=== PATIENT | male | born 2000 | race Caucasian/White ===

== ENCOUNTER 2021-04-23 16:41 | Emergency (ER) | payer BC, SELFPAY ==
[2021-04-23 16:42] VITALS: BP 136/88; PULSE 55; RESP 18; TEMP 36.8; O2SAT 100
--- NOTE | 2021-04-23 17:36 | ED.GENADULT ---
HPI - General Adult General Chief complaint: Eye Problems Stated complaint: bleach in eye Time Seen by Provider: 04/23/21 16:49 Source: patient and RN notes reviewed Mode of arrival: ambulatory Limitations: no limitations History of Present Illness HPI narrative: Patient is a 20-year-old male who presents to emergency department for evaluation of injury to the right notes that he got bleach in the right eye while cleaning irrigated his eye presents to emergency department for evaluation patient notes some irritation and blurriness to the right eye with mild discomfort notes his immunizations are up-to-date. Patient denies any other complaints or concerns presents in no distress does not appear uncomfortable Related Data Home Medications Medication Instructions Recorded Confirmed No Home Medications 04/23/21 04/23/21 Allergies Allergy/AdvReac Type Severity Reaction Status Date / Time Sulfa (Sulfonamide Allergy Rash Verified 04/23/21 16:44 Antibiotics) Review of Systems Review of Systems: All systems reviewed & are unremarkable except as noted in HPI and below PMFSH Social History Social History (Updated 04/23/21 @ 17:37 by Dejuan Hay PA-C) Smoking status: Never smoker Gender identity (if verbalized by the patient): Male Exam Narrative: Exam Narrative: GENERAL: Well-appearing, well-nourished, and in no acute distress. HEAD: Normocephalic, atraumatic. EYES: PERRLA and EOMI. right eye with conjunctival injection no foreign bodies eyelids everted negative fluorescein uptake ENT: Nares clear, no rhinorrhea or epistaxis. Mucous membranes moist. Oropharynx without tonsillar hypertrophy exudate or other lesions. EXTREMITIES: Normal range of motion. No edema. SKIN: Warm, dry, no rash. NEURO: No focal deficits. Alert and oriented x3. Cranial nerves II through XII grossly intact. Neurovascularly intact PSYCH: Normal mood and affect. Course Course Emergency Course: Patient with chemical conjunctivitis felt appropriate for outpatient reevaluation provided with reasons to return afebrile nontoxic-appearing no distress Vital Signs Vital signs: Vital Signs Temperature 98.2 F 04/23/21 16:42 Pulse Rate 55 L 04/23/21 16:42 Respiratory Rate 18 04/23/21 16:42 Blood Pressure 136/88 04/23/21 16:42 Pulse Oximetry 100 04/23/21 16:42 Temperature 98.2 F 04/23/21 16:42 Pulse Rate 55 L 04/23/21 16:42 Respiratory Rate 18 04/23/21 16:42 Blood Pressure 136/88 04/23/21 16:42 Pulse Oximetry 100 04/23/21 16:42 Medical Decision Making MDM Narrative Medical decision making narrative: Patient with chemical conjunctivitis evaluated the emergency department no high risk findings are concerning elements at this time was irrigated in the emergency department had fluorescein evaluation will be discharged with ophthalmology and outpatient reevaluation Vital Signs Vital Signs: Vital Signs Temperature 98.2 F 04/23/21 16:42 Pulse Rate 55 L 04/23/21 16:42 Respiratory Rate 18 04/23/21 16:42 Blood Pressure 136/88 04/23/21 16:42 Pulse Oximetry 100 04/23/21 16:42 Temperature 98.2 F 04/23/21 16:42 Pulse Rate 55 L 04/23/21 16:42 Respiratory Rate 18 04/23/21 16:42 Blood Pressure 136/88 04/23/21 16:42 Pulse Oximetry 100 04/23/21 16:42 Discharge Plan Discharge Clinical Impression: Conjunctivitis, chemical Patient Disposition: Home, Self-Care Condition: Stable Instructions: Antibiotic Form, Conjunctivitis (ED) Additional Instructions: Follow-up with ophthalmology in the next day to set up for reevaluation Return if symptoms worsen or concerns or any increase in redness swelling pain fever over 100.5 visual changes vomiting Follow patient education sheets Use [id number] preservative-free tears every 2 hours for symptom relief Follow patient education sheets Prescriptions: No Action No Home Medications RF: 0 Follow-up/Referrals:
== END 2021-04-23 18:17 | disposition home or self-care (01) ==
LOC: ANHED 17:46
PROVIDERS: Emergency Provider Emergency Medicine
DX: T54.91XA Toxic effect of unspecified corrosive substance, accidental (unintentional), initial encounter (principal); H10.211 Acute toxic conjunctivitis, right eye
CPT/HCPCS: 99282